=== PATIENT | female | born 1995 | race Caucasian/White ===

== ENCOUNTER 2022-11-18 10:32 | Emergency (ER) | payer BC, SELFPAY ==
[2022-11-18] MEDS ORDERED: Dexameth. Sod Phosp. 10 MG/ML (CHEMO USE ONLY) ONE (11:39)
[2022-11-18] MEDS ORDERED: Amoxicillin/Potassium Clav 875 MG TAB ONE (11:39)
== END 2022-11-18 11:43 | disposition home or self-care (01) ==
LOC: ERS 10:32
DX: J02.0 Streptococcal pharyngitis (principal)
CPT/HCPCS: 87081; 87430; 99283; J1100

== ENCOUNTER 2022-12-22 08:10 | Emergency (ER) | payer SELFPAY ==
[2022-12-22 08:59] LABS: Bilirubin Negative (Negative); Blood, Urine 2+ (Negative); CAUTI Indications for Culture Pelvic or flank pain; Clarity Turbid (Clear); Glucose, Urine (Dipstick) Normal (Negative); Ketone, Urine Negative (Negative); Leukocyte 75 Leu/uL (Negative); Nitrite Negative (Negative); Protein, Urine (Dipstick) 30 mg/dL (Neg-Trace); RBC/HPF 0-3 HPF (0-3); Specific Gravity, Urine 1.032 (1.002-1.036); Urobilinogen Normal mg/dL (Less than 2)
[2022-12-22 09:00] LABS: Bacteria/HPF 1+ HPF (None Seen); Pregnancy Test - Urine (BHCG) Negative (Negative); Pregu Control Background? CLEAR/WHITE (CLR/WHITE); Pregu Control Bar Appear? YES (CONTROL BAR); Specific Gravity 1.032 (1.002-1.036)
[2022-12-22 09:01] LABS: Urine Culture Reflex No No
[2022-12-22] MEDS ORDERED: Azithromycin 250 MG TAB ONE (09:05)
[2022-12-22] MEDS ORDERED: Lidocaine 1% PF 5 ML VIAL ONE (09:05)
[2022-12-22] MEDS ORDERED: cefTRIAXone (ROCEPHIN) 500 MG VIAL ONE (09:05)
[2022-12-22 15:22] LABS: Chlamydia by PCR, Vaginal Swab Not Detected (NotDetected); GC by PCR, Vaginal Swab Not Detected (NotDetected)
== END 2022-12-22 09:30 | disposition home or self-care (01) ==
LOC: ERS 08:10
DX: Z20.2 Contact with and (suspected) exposure to infections with a predominantly sexual mode of transmission (principal)
CPT/HCPCS: 81001; 81025; 87480; 87491; 87510; 87591; 87660; 96372; 99283; J0696